=== PATIENT | female | born 2000 | race Hispanic/Latino ===

== ENCOUNTER 2021-08-19 11:49 | Emergency (ER) | payer SELFPAY ==
[2021-08-19 12:50] LABS: #Eosinphils 0.1 thou/uL (0.0-0.7); #Lymphocytes 1.9 thou/uL (1.20-3.40); #Monocytes 0.4 thou/uL (0.11-0.59); #Neutrophils 4.4 thou/uL (1.40-6.50); %Basophils 0.1 % (0.0-1.0); %Eosinophils 0.9 % (0.0-10.0); %Lymphocytes 27.7 % (21.0-51.0); %Monocytes 6.1 % (0.0-10.0); %Neutrophils 65.1 % (42.0-75.0); Hemoglobin 13.7 g/dL (12.0-16.0); Mean Corpuscular HGB CONC 34.3 g/dL (32.0-36.0); Mean Corpuscular Hemoglobin 30.4 pg (27.0-31.0); Mean Corpuscular Volume 88.4 fL (78.0-98.0); Mean Platelet Volume 7.6 fL (7.4-10.4); Platelet Count 287 thou/uL (130-400); RBC Distribution Width 11.2 % (11.5-14.5); Red Blood Cell (RBC) Count 4.53 mill/uL (4.20-5.40); White Blood Cell (WBC) Count 6.7 thou/uL (4.8-10.8)
[2021-08-19 13:13] LABS: ALT (SGPT) 39 U/L (8-55); AST (SGOT) 18 U/L (5-34); Albumin 4.2 g/dL (3.5-5.0); Alkaline Phosphatase 80 U/L (40-110); Anion Gap 10 mmol/L (10-20); BUN (Urea Nitrogen) 12 mg/dL (7.0-18.7); Bilirubin, Total 0.7 mg/dL (0.2-1.2); Calc. Creatinine Clearance 0 mL/min (70-130); Calcium 9.4 mg/dL (7.8-10.44); Carbon Dioxide 26 mmol/L (22-29); Chloride 106 mmol/L (98-107); Estimated GFR 127; Globulin 3.7 g/dL (2.4-3.5); Glucose 109 mg/dL (70-105); Potassium 4.3 mmol/L (3.5-5.1); Protein, Total 7.9 g/dL (6.0-8.3); Sodium 138 mmol/L (136-145)
[2021-08-19] MEDS ORDERED: Iopamidol-370 76% 500 ML 1 ML ONE (13:41)
== END 2021-08-19 15:10 ==
LOC: ERS 11:49
DX: J02.9 Acute pharyngitis, unspecified (principal)
CPT/HCPCS: 70491; 80053; 85025; Q9967

== ENCOUNTER 2023-04-13 13:20 | Outpatient (CLI) | payer OTHER | END 2023-04-13 13:21 | disposition home or self-care (01) | LOC: BICULT 13:20 | PROVIDERS: ATTEND Family Medicine | DX: Z34.02 Encounter for supervision of normal first pregnancy, second trimester (principal); Z3A.21 21 weeks gestation of pregnancy | CPT/HCPCS: 76805 ==